=== PATIENT | male | born 2005 | race African-American/Black ===

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

== ENCOUNTER 2023-03-10 11:01 | Emergency (ER) | payer MEDICAID ==
[~2023-03-10] VITALS: Ht 167.6 cm; Wt 56.8 kg
[2023-03-10 11:09] VITALS: BP 123/77
[2023-03-10] MEDS ORDERED: BACITRACIN ZINC OINT UDPKT TOP ONE (13:15)
[2023-03-10] MEDS ORDERED: LIDOCAINE HCL/PF 1% 10 MG/ML 5ML VIAL INFIL ONE (13:15)
[2023-03-10] MEDS ORDERED: TETANUS, DIPHTHERIA, PERTUSSIS VAC/PF 0.5ML (>10YR OLD) IM ONE (13:15)
[2023-03-10] MEDS ORDERED: NAPR-681 MT (13:29)
== END 2023-03-10 14:47 | disposition home or self-care (01) ==
LOC: ER 11:01
DX: L02.413 Cutaneous abscess of right upper limb (principal)
CPT/HCPCS: 10060; 90471; 90715; 99283; J3490; Z7610